=== PATIENT | female | born 1940 | race Caucasian/White ===

== ENCOUNTER 2016-08-31 12:08 | Inpatient (IN) ==
[2016-08-31] MEDS ORDERED: NS 1,000 ML IV ONE (12:32)
--- NOTE | 2016-08-31 12:40 | PROVIDER DOCUMENTATION ---
HPI-Abdominal Pain/GI Problem - General Chief Complaint: Weakness Stated Complaint: weakness/vomiting/shaking Time Seen by Provider: 08/31/16 12:09 Source: patient Allergies/Adverse Reactions: Patient Allergies Allergy/AdvReac Type Severity Reaction Status Date / Time No Known Allergies Allergy Verified 08/22/16 20:00 Home Medications: Home Medication List Medication Instructions Recorded Confirmed Last Taken Type Biotin 5,000 mcg PO DAILY 08/22/16 08/31/16 08/22/16 History Carbidopa/Levodopa [Carbidopa-Levo 1 each PO HS 08/22/16 08/31/16 08/30/16 19: 00 History 25-250 Tab] Carbidopa/Levodopa [Sinemet 25/100] 1 each PO TID 08/22/16 08/31/16 08/30/16 19: 00 History Diazepam 5 mg PO Q8H PRN PRN 08/22/16 08/31/16 08/22/16 History Magnesium 400 mg PO QPM 08/22/16 08/31/16 08/30/16 19:00 History Ondansetron HCl [Zofran] 4 mg PO Q6H PRN PRN 08/22/16 08/31/16 08/22/16 History Ondansetron [Zofran Odt] 4 mg PO Q6-8H PRN PRN #20 08/22/16 08/31/16 Unknown Rx tab.rapdis Potassium Chloride [Klor-Con 10] 10 meq PO QPM 08/22/16 08/31/16 08/21/16 History Rivaroxaban [Xarelto] 20 mg PO DAILY 08/22/16 08/31/16 08/30/16 19:00 History Zolpidem [Ambien] 5 mg PO QHS 08/22/16 08/31/16 08/22/16 History - History of Present Illness-ABD Nature of Presenting Problems: 75 yo WF has poor PO intake, low urine output, constipation, weakness, N/V for a week. No fever, dysuria, CP, SOB. Abdominal Pain Onset Location: reports: generalized abdomen Pain Radiation: reports: no radiation Quality of Pain: reports: aching Severity in ED: reports: mild Onset/Duration: reports: 6 days ago Timing: reports: still present Activities at Onset: reports: none Exposure to sick contacts?: No Modifying Factors: worse with: eating, urinating, vomiting Associated Symptoms: reports: constipation, genitourinary problems, loss of appetite, nausea, vomiting. denies: diaphoresis, diarrhea, fatigue, fever/ chills Last BM: 1 week ago Dark Stools Present?: reports: none noticed Rectal Bleeding: reports: none Rectal Pain: reports: none Review of Systems - Adult - REVIEW OF SYSTEMS - ADULT Constitutional: reports: no symptoms reported. denies: chills, fever Eyes: reports: no symptoms reported Ears, Nose, Mouth & Throat: reports: no symptoms reported Cardiovascular: reports: no symptoms reported. denies: palpitations Respiratory: reports: no symptoms reported. denies: cough, shortness of breath Gastrointestinal: reports: no symptoms reported Genitourinary: reports: no symptoms reported, hesitency. denies: dysuria Musculoskeletal: reports: no symptoms reported Integumentary: reports: no symptoms reported Neurological: reports: tremors (old) Psychiatric: reports: no symptoms reported Endocrine: reports: no symptoms reported Hematologic/Lymphatic: reports: no symptoms reported Allergic/Immunologic: reports: no symptoms reported All Other Systems: Reviewed and Negative Past History - Adult - PAST MEDICAL HISTORY-ADULT Review of Records: reports: Old Records Reviewed, Nursing Assessment Review, Medications Reviewed, Social history reviewed & non-contributory. Major Childhood Illnesses: reports: denies history Cardiovascular: reports: denies history, other ("calcified something in my chest ") Respiratory: reports: denies history Gastrointestinal: reports: Crohn's, inflammatory bowel disease Obstetrical/Gynecological: reports: denies history Genitourinary: reports: denies history Musculoskeletal: reports: arthritis, osteoporosis, other (ankylosing spondylosis ) Neurological: reports: denies history, other (tremor) Psychiatric: reports: denies history Endocrine/Immune: reports: denies history Other Conditions: reports: denies history - PRIOR HOSPITALIZATIONS Prior Hospitalizations: reports: for other non-related - IMMUNIZATION STATUS Flu Vaccine: UTD - FAMILY HISTORY Family History: reviewed, not pertinent Physical Exam-General - PHYSICAL EXAM-ADULT Initial Vital Signs Reviewed: Yes - CONSTITUTIONAL General Appearance: mild distress, obese - EYES Eyes: PERRL/EOMI, pink conjunctivae - HEAD, EARS, NOSE, MOUTH & THROAT HENMT: normocephalic/atraumatic, moist mucous membranes - NECK Neck: non-tender, supple - RESPIRATORY Respiratory: lungs clear, normal breath sounds - CARDIOVASCULAR Cardiovascular: normal peripheral pulses, regular rate, rhythm, no edema, tachycardia - GASTROINTESTINAL (ABDOMEN) Abdominal Exam: non tender, soft - LYMPHATIC Lymphatic: no adenopathy - MUSCULOSKELETAL Back Exam: no CVA tenderness, no vertebral tenderness - SKIN Integumentary: normal color - NEUROLOGIC Neurologic: no motor/sensory deficits, other (tremulous (old)) - PSYCHIATRIC Psych/Mental Status: normal mood/affect, normal thought content, normal thought process, oriented x 3 Progress - PLAN OF CARE/RESULTS Progress/Plan/Lab Results: Vital Signs - 8 hr 08/31/16 12:09 Temperature 97.7 F Pulse Rate 197 H Respiratory Rate 16 Blood Pressure 126/54 O2 Sat by Pulse Oximetry 99 Orders Category Date Time Status FLAT/UPRIGHT ABD/1 VIEW CHEST [RAD] Stat Exams 08/31/16 12:32 Ordered CBC WITH ELECTRONIC DIFF [HEME] Stat Lab 08/31/16 12:32 Uncollected COMPREHENSIVE METABOLIC PANEL [CHEM] Stat Lab 08/31/16 12:32 Uncollected URINALYSIS W/POSS RFLX CULT [URINALYSIS] Stat Lab 08/31/16 12:32 Uncollected 0.9% Sodium Chloride Inj [Ns] 1,000 ml Med 08/31/16 12:32 Active IV 999 mls/hr 1700 Discussed results with patient. Her IV infiltrated again. Family states she cannot perform ADLS. Needs help. Wants admission for rehab. Noted abnormal heart monitor intermittently with tachycardia. Result Diagrams: 08/31/16 13:34 08/31/16 13:34 - CONSULTS/PCP/HOSPITALIST Notification #1 *Consult/PCP/Hospitalist*: Hospitalist Time Discussed: 17:25 Reason/Comments: Janeen Consult Disposition: Admit Departure - Departure Date of Disposition Decision: 08/31/16 Time of Disposition Decision: 17:26 DIAGNOSIS: Leukocytosis, Constipation Disposition: ADMITTED INPATIENT 09 Certified Medical Emergency: Emergent Condition: Stable Referrals and Follow-Ups: Isrrael Reyes MD [Primary Care Provider] - - Critical Care Note This patient required my direct & personal management of CC.: No
--- NOTE | 2016-08-31 12:43 | EKG Report ---
Test Performed on : 08/31/2016 12:09:35 PM Test Reason : CP Blood Pressure : / mmHG Vent. Rate : 092 BPM Atrial Rate : 092 BPM P-R Int : 158 ms QRS Dur : 078 ms QT Int : 372 ms P-R-T Axes : 050 011 016 degrees QTc Int : 460 ms Normal sinus rhythm. Low voltage QRS ST \T\ T wave abnormality, consider anterior ischemia Abnormal ECG When compared with ECG of 22-AUG-2016 19:24, No significant change was found Unconfirmed Result
--- NOTE | 2016-08-31 13:21 | Diag Imaging Result Doc PS360 ---
FLAT/UPRIGHT ABD/1 VIEW CHEST - 08/31/2016 INDICATION: constipation, pain TECHNIQUE: Three views COMPARISON: 10/12/2014 FINDINGS: The lungs are clear and the heart size is normal. There are numerous stable left-sided rib deformities. There are cholecystectomy clips. No definite bowel obstruction or free air. IMPRESSION: Negative exam. Electronically signed by Rodolfo Bran 08/31/2016 1:19 PM
[2016-08-31 14:05] LABS: BASO% 0.1 % (0.0-0.8); EOS# 0.04 X1000 (0.0-0.7); EOS% 0.3 % (0.0-10.0); HEMATOCRIT 36.6 % (37.0-47.0); HEMOGLOBIN 12.7 g/dL (12.0-16.0); LYMPH# 2.77 X1000 (1.2-3.4); LYMPH% 23.6 % (20.5-51.1); MANUAL DIFF NEEDED? NO; MCH 37.1 PG (27-31); MCHC 34.7 g/dL (33-37); MONO# 0.83 X1000 (0.11-0.59); MONO% 7.1 % (1.7-9.3); MPV 9.7 FL (7.4-10.4); NEUT% 68.9 % (42.2-75.2); PLT 408 X1000 (130-400); RBC 3.42 XMIL (4.2-5.4)
[2016-08-31 14:07] LABS: ALBUMIN 2.7 g/dL (3.5-5.0); CALCIUM 8.5 mg/dL (8.8-10.2); TOTAL BILIRUBIN 0.51 mg/dL (0.20-1.00); TOTAL PROTEIN 5.8 g/dL (6.3-8.3)
[2016-08-31 14:54] LABS: URINE MICRO REVIEW NEEDED? NO; URINE SOURCE CATH
[2016-08-31 15:03] LABS: BILIRUBIN URINE NEGATIVE (NEGATIVE); BLOOD URINE NEGATIVE (NEGATIVE); COLOR YELLOW; GLUCOSE URINE NEGATIVE (NEGATIVE); LEUKOCYTES URINE TRACE (NEGATIVE); NITRITE URINE NEGATIVE (NEGATIVE); PH URINE 6.5; PROTEIN URINE TRACE mg/dL (NEGATIVE); SP GRAVITY URINE 1.022; TURBIDITY URINE CLEAR (CLEAR); UROBILINOGEN URINE NORMAL (NORMAL)
[2016-08-31 15:05] LABS: UR EPITHELIAL CELLS <10 /HPF (<10); URINE BACTERIA NEGATIVE /HPF; URINE CULTURE NEEDED? YES; URINE RBC <10 /HPF (<10); URINE WBC <10 /HPF (<10)
[2016-08-31 15:27] LABS: POTASSIUM 3.8 mmol/L (3.5-5.1)
[2016-08-31] MEDS ORDERED: ZOFRAN ODT PO ONE (15:48)
[2016-08-31] MEDS ORDERED: MORPHINE IV ONE (16:50)
[2016-08-31] MEDS ORDERED: ZOFRAN ONE (16:52)
[2016-08-31] MEDS ORDERED: MORPHINE ONE (16:52)
[2016-08-31] MEDS ORDERED: ZOFRAN IV ONE (17:07)
[2016-08-31] MEDS ORDERED: ZOFRAN IV PRN (18:49)
--- NOTE | 2016-08-31 20:37 | HISTORY AND PHYSICAL ---
CHIEF COMPLAINT: Nausea, constipation. HISTORY OF PRESENT ILLNESS: This is a 75-year-old female with a past medical history of Crohn disease, ankylosis spondylitis, uncontrolled hypertension, pulmonary embolism back in January 2016 on anticoagulation, possible Parkinson disease, came to the emergency department with a chief complaint of 2 weeks with constipation. As per the patient also she started having nausea since yesterday. Her last bowel movement was last Saturday and since then she has been feeling worse, family members at the bedside. Laboratory work done at the emergency department showed WBC 11.7. X-ray of the abdomen showed cholecystectomy clips but no bowel obstruction or free air. Also this patient has generalized weakness to the point that she cannot walk by herself. She needs to get help. As per the patient also she was able to walk a month ago. This patient will be admitted to treat her constipation and nausea and I will talk to the social media specialist to see if we can find some placement for this patient since this patient is living by herself and probably she cannot take care of her. REVIEW OF SYSTEMS: All negative except as per HPI. PAST MEDICAL HISTORY: Crohn disease, ankylosis spondylitis, uncontrolled hypertension, pulmonary embolism on anticoagulation, possible Parkinson disease. PAST SURGICAL HISTORY: Bowel resection 5 years ago, history of hernia repair, lower spinal surgery back in 1964 and nerve repair at the right leg back in 1958. SOCIAL HISTORY: She lives by herself. She does not smoke, drink alcohol or drugs. FAMILY HISTORY: Noncontributory. ALLERGIES: No known allergies to medications. BLOOD TRANSFUSION: None. PHYSICAL EXAM: VITAL SIGNS: Temperature 97.7 degrees, pulse 122, respiratory rate 14, blood pressure 125/61, O2 saturation 100% on 2 L of nasal cannula. HEENT: Head normocephalic. No trauma. PERRLA. NECK: Supple. No JVD. No masses. Central trachea. CHEST: Clear to auscultation. No wheezing. No rales. CARDIOVASCULAR: RRR, tachycardic. ABDOMEN: Soft, nontender, nondistended. No hepatosplenomegaly. EXTREMITIES: No edema. No clubbing. No cyanosis. NEUROLOGICAL: This patient is alert and oriented x3. She has generalized tremors mostly at the level of the upper and lower extremities. INGUINAL AREA: She has bilateral rash. LABORATORY: WBC 11.7, hemoglobin 12.7, hematocrit 36.6, platelets 408,000. Sodium 134, potassium 3.8, chloride 95, bicarbonate 27, BUN 22, creatinine 1, glucose 98, calcium 8.5, AST 19, ALT 12, alkaline phosphatase 186. Troponins negative. Urinalysis negative for infection. ASSESSMENT AND PLAN: 1. Severe constipation. I will hydrate this patient and also I will put this patient on MiraLAX twice a day and I will place a Dulcolax suppository x1, will monitor. Also I will ask for physical therapy. 2. Nausea. I will put this patient on Zofran p.r.n. 3. History of Crohn disease. Aware. 4. History of ankylosis spondylitis. Aware. 5. Uncontrolled hypertension. The blood pressure right now is stable. Continue to monitor. 6. Pulmonary embolism back in January 2016. I will continue with Xarelto. 7. Possible Parkinson disease. Continue with her home medication. 8. Physical deconditioning. Physical therapy will be on board. MEDICATIONS: Magnesium 400 mg p.o. daily, biotin 5000 mcg p.o. daily, zolpidem 5 mg p.o. twice a day, carbidopa/levodopa 25/250 one tablet p.o. at bedtime, Zofran 4 mg p.o. q.6 hours p.r.n., Xarelto 20 mg p.o. daily, potassium chloride 10 mEq p.o. daily, diazepam 5 mg p.o. every 8-12 hours p.r.n., [place] 5 mg p.o. q.8 hours p.r.n. pain. cc: Sae Guillen MD
[2016-08-31] MEDS: NS 1,000 ML IV SCH (20:43)
[2016-08-31] MEDS ORDERED: VALIUM PO PRN (22:31)
[2016-08-31] MEDS ORDERED: DULCOLAX PR ONE (22:31)
[2016-09-01] MEDS: SINEMET 25/250 PO SCH ×2 (00:18→21:36)
[2016-09-01] MEDS: TYLENOL PO PRN ×2 (00:18→16:41)
[2016-09-01] MEDS: AMBIEN PO SCH ×2 (00:19→21:36)
[2016-09-01] MEDS: MIRALAX PO SCH ×3 (00:19→21:36)
[2016-09-01] MEDS: MAG-OX PO SCH ×2 (00:19→21:36)
[2016-09-01 06:58] LABS: BASO% 0.4 % (0.0-0.8); EOS% 4.1 % (0.0-10.0); HEMOGLOBIN 9.9 g/dL (12.0-16.0); LYMPH# 2.58 X1000 (1.2-3.4); LYMPH% 52.8 % (20.5-51.1); MANUAL DIFF NEEDED? YES; MCH 36.3 PG (27-31); MCHC 34.1 g/dL (33-37); MCV 106.2 FL (81-99); MONO# 0.46 X1000 (0.11-0.59); MONO% 9.4 % (1.7-9.3); MPV 9.5 FL (7.4-10.4); NEUT% 31.3 % (42.2-75.2); PLT 290 X1000 (130-400); RBC 2.73 XMIL (4.2-5.4)
[2016-09-01 07:08] LABS: AGAP 8; ALBUMIN 2.1 g/dL (3.5-5.0); ALKALINE PHOSPHATASE 142 U/L (32-104); BUN 23 mg/dL (8-22); CALCIUM 7.5 mg/dL (8.8-10.2); CHLORIDE 99 mmol/L (98-107); COSMO 272; GOT 24 U/L (10-30); GPT 6 U/L (10-36); POTASSIUM 3.3 mmol/L (3.5-5.1); SODIUM 135 mmol/L (136-145); TCO2 28 mmol/L (25-35); TOTAL BILIRUBIN 0.33 mg/dL (0.20-1.00); TOTAL PROTEIN 4.3 g/dL (6.3-8.3)
[2016-09-01 07:51] LABS: EOS 4 % (1-10); LYMPHS 48 % (21-51); MONO 4 % (1-9)
[2016-09-01] MEDS ORDERED: KLOR-CON PO ONE (08:21)
[2016-09-01] MEDS ORDERED: BIOTIN PO SCH (09:00)
[2016-09-01] MEDS: XARELTO PO SCH (09:42)
[2016-09-01] MEDS: EUCERIN CREAM TOP SCH ×3 (12:06→21:35)
--- NOTE | 2016-09-01 12:59 | PROGRESS NOTE ---
DATE: 09/01/2016 SUBJECTIVE: This patient's constipation is getting better. She had at least 3 bowel movements today. The main problem at this moment is a rash at the level of the inguinal area and perianal area. I have ordered a Camp catheter and also I will use Eucerin cream to protect those areas. Her friend is at the bedside. Physical therapy is on board. OBJECTIVE: Vital Signs: Temperature 97.5 degrees, pulse 75, respiratory rate 14, blood pressure 103/48, oxygen saturation 100% on 2L nasal cannula. HEENT: Head normocephalic. No trauma. PERRLA. Neck: Supple. No JVD. No masses. Central trachea. Chest: Clear to auscultation. No wheezing. No rales. Cardiovascular: RRR. No murmurs. Abdomen: Soft, nontender, nondistended. No hepatosplenomegaly. Extremities: No edema. No clubbing. No cyanosis. Inguinal Area: She has bilateral rash including the perianal area. Neurologic: The patient is alert and oriented x3. No focal deficits. She has generalized tremors. LABORATORY: WBC 4.8, hemoglobin 9.9, hematocrit 29, platelets 290,000. Sodium 135, potassium 3.3, chloride 99, bicarbonate 28, BUN 23, creatinine 0.8, calcium 7.5, albumin 2.1. Vitamin B12 45. Folate 14.6. ASSESSMENT AND PLAN: 1. Severe constipation. This is getting better. She had so far 3 bowel movements today. We will continue to monitor. We will continue with the same management. 2. Nausea, resolved. We will continue with Zofran p.r.n. 3. Rash at the level of the inguinal area and perianal area. A Camp catheter has been placed. I will use Eucerin to keep this protected. 4. History of Crohn disease. Aware. 5. History of ankylosing spondylitis. Aware. 6. Hypertension, stable. Continue to monitor. 7. Pulmonary embolism back in January 2016. Continue with Xarelto. 8. Possible Parkinson disease. Continue with her home medications. 9. Physical deconditioning. Physical therapy is on board. 10. Macrocytic anemia, likely related to B12 deficiency. Will start B12 on this patient. cc: Sae Guillen MD
[2016-09-01] MEDS: CYANOCOBALAMIN IM SCH (16:25)
[2016-09-01] MEDS: NS 1,000 ML IV SCH ×2 (16:43→16:47)
[2016-09-01 20:35] LABS: URINE MICRO REVIEW NEEDED? NO; URINE SOURCE CATH
[2016-09-01 20:44] LABS: BILIRUBIN URINE NEGATIVE (NEGATIVE); BLOOD URINE LARGE (NEGATIVE); COLOR YELLOW; GLUCOSE URINE NEGATIVE (NEGATIVE); LEUKOCYTES URINE TRACE (NEGATIVE); NITRITE URINE NEGATIVE (NEGATIVE); PROTEIN URINE 30 mg/dL (NEGATIVE); SP GRAVITY URINE 1.033; TURBIDITY URINE CLEAR (CLEAR); UROBILINOGEN URINE NORMAL (NORMAL)
[2016-09-01 20:46] LABS: UR EPITHELIAL CELLS <10 /HPF (<10); URINE BACTERIA NEGATIVE /HPF; URINE CULTURE NEEDED? YES; URINE RBC TNTC /HPF (<10)
[2016-09-01] MEDS: KLOR-CON PO SCH (21:36)
[2016-09-02 06:58] LABS: MANUAL DIFF NEEDED? NO
[2016-09-02 07:34] LABS: EOS# 0.17 X1000 (0.0-0.7); EOS% 2.3 % (0.0-10.0); HEMATOCRIT 34.2 % (37.0-47.0); HEMOGLOBIN 11.8 g/dL (12.0-16.0); IMM GRAN% 2.7 % (0.0-0.5); LYMPH# 2.82 X1000 (1.2-3.4); LYMPH% 38.6 % (20.5-51.1); MCH 36.6 PG (27-31); MCHC 34.5 g/dL (33-37); MCV 106.2 FL (81-99); MONO# 0.68 X1000 (0.11-0.59); MONO% 9.3 % (1.7-9.3); MPV 9.9 FL (7.4-10.4); NEUT% 46.1 % (42.2-75.2); PLT 286 X1000 (130-400); RBC 3.22 XMIL (4.2-5.4)
[2016-09-02 07:38] LABS: AGAP 10; BUN 19 mg/dL (8-22); CALCIUM 7.6 mg/dL (8.8-10.2); CHLORIDE 98 mmol/L (98-107); COSMO 265; POTASSIUM 4.1 mmol/L (3.5-5.1); SODIUM 132 mmol/L (136-145); TCO2 24 mmol/L (25-35)
[2016-09-02] MEDS: MIRALAX PO SCH (08:57)
[2016-09-02] MEDS: BIOTIN PO SCH (08:57)
[2016-09-02] MEDS: CYANOCOBALAMIN IM SCH (08:58)
[2016-09-02] MEDS: EUCERIN CREAM TOP SCH ×2 (08:58→20:42)
[2016-09-02] MEDS: XARELTO PO SCH (08:58)
--- NOTE | 2016-09-02 18:08 | PROGRESS NOTE ---
DATE: 09/02/2016 SUBJECTIVE: This patient's constipation is much better. She states that she feels 100% better. She is still having generalized weakness. Physical therapy is on board. OBJECTIVE: Vital Signs: Temperature 97.8 degrees, pulse 80, respiratory rate 20, blood pressure 120/83. O2 saturation 100% on 2 L of nasal cannula. HEENT: Head is normocephalic. No trauma. PERRLA. Neck: Supple. No JVD. No masses. Central trachea. Chest: Clear to auscultation. No wheezing. No rales. Abdomen: Soft, nontender, nondistended. No hepatosplenomegaly. Extremities: No edema. No clubbing. No cyanosis. The inguinal area, she has bilateral rash, including the perianal area. Neurological Examination: The patient is alert and oriented x3. No focal deficits. Generalized tremors and weakness. LABORATORY: WBC 7.3, hemoglobin 11.8, hematocrit 34.2, platelets 286,000. Sodium 132, potassium 4.1, chloride 98, bicarbonate 24, BUN 19, creatinine 0.7, glucose 75, calcium 7.6. Urine culture gram-negative rods. ASSESSMENT AND PLAN: 1. Severe constipation. This is getting better. She has been having multiple bowel movements per day. I decreased the dose of MiraLAX to one a day. Will continue to monitor. 2. Nausea, resolved. 3. Rash at the level of the inguinal area and perianal area. Continue to have these areas dry, clean, and antifungal cream. 4. History of Crohn's disease, aware. 5. History of ankylosing spondylitis, aware. 6. Hypertension, stable. Continue to monitor. 7. Pulmonary embolism back in January,. Continue with Xarelto. 8. Possible Parkinson disease. Continue with home medication. 9. Physical deconditioning. Physical therapy is on board. 10. Microcytic anemia, secondary to B12 deficiency. Continue with B12 treatment. Positive culture for gram-negative mary lou in the urine. When this patient was admitted, we did a urinalysis that was clean. Also the urine culture from admission is negative. Then, this patient started having multiple bowel movements and we placed a Camp catheter. After that the urine looks infected and we have a positive culture that showed gram-negative rods. This patient is not complaining of burning sensation or any symptoms with the urine. I will repeat the urinalysis and cultures. She is not getting antibiotics. cc: Sae Guillen MD
[2016-09-02] MEDS: TYLENOL PO PRN (19:41)
[2016-09-02] MEDS: AMBIEN PO SCH (20:41)
[2016-09-02] MEDS: SINEMET 25/250 PO SCH (20:41)
[2016-09-02] MEDS: KLOR-CON PO SCH (20:41)
[2016-09-02] MEDS: MAG-OX PO SCH (20:41)
[2016-09-02] MEDS: NS 1,000 ML IV SCH (20:49)
[2016-09-03] MEDS: NS 1,000 ML IV SCH ×3 (00:47→20:32)
--- NOTE | 2016-09-03 03:52 | PROGRESS NOTE ---
DATE: 09/02/2016 ADDENDUM: DISPOSITION: This patient was admitted because of severe constipation and leukocytosis, the constipation improved and the leukocytosis improved without antibiotics. She has a positive urine culture that showed gram-negative rods. Probably this is a contaminant. I have repeated the urinalysis again and urine culture again since the 1st one from the day of admission is negative. The 2nd one was taken after the placement of a Camp catheter. This patient is not having urinary symptoms. cc: Sae Guillen MD
[2016-09-03 07:18] LABS: MANUAL DIFF NEEDED? NO
[2016-09-03 07:42] LABS: BASO% 0.8 % (0.0-0.8); EOS# 0.15 X1000 (0.0-0.7); EOS% 2.3 % (0.0-10.0); HEMATOCRIT 32.4 % (37.0-47.0); HEMOGLOBIN 11.3 g/dL (12.0-16.0); IMM GRAN# 0.18 X1000 (0.0-0.04); IMM GRAN% 2.7 % (0.0-0.5); LYMPH# 2.19 X1000 (1.2-3.4); LYMPH% 33.3 % (20.5-51.1); MCH 36.6 PG (27-31); MCHC 34.9 g/dL (33-37); MCV 104.9 FL (81-99); MONO# 0.83 X1000 (0.11-0.59); MONO% 12.6 % (1.7-9.3); MPV 9.2 FL (7.4-10.4); NEUT% 48.3 % (42.2-75.2); PLT 376 X1000 (130-400); RBC 3.09 XMIL (4.2-5.4)
--- NOTE | 2016-09-03 07:43 | EKG Report ---
Test Performed on : 08/31/2016 6:24:38 PM Test Reason : CP Blood Pressure : / mmHG Vent. Rate : 092 BPM Atrial Rate : 092 BPM P-R Int : 172 ms QRS Dur : 072 ms QT Int : 368 ms P-R-T Axes : 039 008 -17 degrees QTc Int : 455 ms Normal sinus rhythm. Cannot rule out Inferior infarct , age undetermined Abnormal ECG When compared with ECG of 31-AUG-2016 12:09, (Unconfirmed) No significant change was found Unconfirmed Result
[2016-09-03 07:47] LABS: AGAP 7; BUN 14 mg/dL (8-22); CALCIUM 7.6 mg/dL (8.8-10.2); CHLORIDE 98 mmol/L (98-107); COSMO 269; POTASSIUM 3.5 mmol/L (3.5-5.1); SODIUM 135 mmol/L (136-145); TCO2 30 mmol/L (25-35)
[2016-09-03] MEDS: XARELTO PO SCH (09:04)
[2016-09-03] MEDS: MIRALAX PO SCH (09:04)
[2016-09-03] MEDS: BIOTIN PO SCH (09:05)
[2016-09-03] MEDS: CYANOCOBALAMIN IM SCH (09:05)
[2016-09-03] MEDS: EUCERIN CREAM TOP SCH ×2 (09:05→20:37)
[2016-09-03 10:25] LABS: URINE MICRO REVIEW NEEDED? NO; URINE SOURCE CATH
[2016-09-03 10:32] LABS: BILIRUBIN URINE NEGATIVE (NEGATIVE); BLOOD URINE SMALL (NEGATIVE); COLOR YELLOW; GLUCOSE URINE NEGATIVE (NEGATIVE); LEUKOCYTES URINE MODERATE (NEGATIVE); NITRITE URINE POSITIVE (NEGATIVE); PH URINE 5.5; PROTEIN URINE NEGATIVE (NEGATIVE); SP GRAVITY URINE 1.014; TURBIDITY URINE CLEAR (CLEAR); UROBILINOGEN URINE NORMAL (NORMAL)
[2016-09-03 10:34] LABS: UR EPITHELIAL CELLS <10 /HPF (<10); URINE BACTERIA 4+ /HPF; URINE RBC <10 /HPF (<10); URINE WBC TNTC /HPF (<10)
[2016-09-03] MEDS ORDERED: CALCIUM GLUCONATE 1 GM in NS 50 ML IV ONE (13:49)
--- NOTE | 2016-09-03 15:23 | PROGRESS NOTE ---
DATE: 09/03/2016 SUBJECTIVE: The patient has had multiple episodes of diarrhea. She denies having any abdominal pain and has been eating all of her meal. OBJECTIVE: Vital signs: Temperature 97 degrees, blood pressure 126/51, heart rate 76, respirations 16, O2 saturations 100% on 2 L nasal cannula. General: This is a morbidly obese, elderly female, lying in bed, in no acute distress. Head: Normocephalic, atraumatic. Heart: S1, S2. Normal. Regular rate and rhythm. Lungs: Clear to auscultation bilaterally. Abdomen: Positive bowel sounds. Soft, nontender, nondistended. Extremities: No edema. No cyanosis. No calf tenderness. Neurologic: The patient is alert and oriented x3. LABORATORY: Sodium 135, potassium 3.5, chloride 98, CO2 30, BUN 14, creatinine 0.7, glucose 79. White blood cell count 6.5, hemoglobin 11, hematocrit 32, platelets 376,000. Urinalysis is 4+ bacteria. Moderate leukocytes and positive nitrites. ASSESSMENT AND PLAN: 1. Urinary tract infection. The prior urine culture grew out Escherichia coli. We will start the patient on Rocephin. 2. Diarrhea. We will check stool for Clostridium difficile and other stool studies. We will start the patient on lactobacillus. 3. History of pulmonary embolism. Continue on Xarelto. 4. Morbid obesity. Aware. 5. Parkinson's disease. Continue on Sinemet. 6. Hypocalcemia. We will give the patient a dose of calcium gluconate. 7. Continue with physical therapy. 8. Disposition. Once the patient is medically stable, she will be discharged to rehab. cc: Helen Nina MD
[2016-09-03] MEDS: ROCEPHIN 1 GM/NS 1 GM/50 ML IVPB IV SCH (17:36)
[2016-09-03] MEDS: KLOR-CON PO SCH (20:36)
[2016-09-03] MEDS: SINEMET 25/250 PO SCH (20:36)
[2016-09-03] MEDS: MAG-OX PO SCH (20:36)
[2016-09-03] MEDS: CULTURELLE PO SCH (20:36)
[2016-09-03] MEDS: AMBIEN PO SCH (21:11)
[2016-09-04] MEDS: NS 1,000 ML IV SCH (04:49)
[2016-09-04 10:26] LABS: BASO% 2.6 % (0.0-0.8); EOS# 0.12 X1000 (0.0-0.7); EOS% 1.6 % (0.0-10.0); HEMATOCRIT 33.9 % (37.0-47.0); HEMOGLOBIN 11.7 g/dL (12.0-16.0); IMM GRAN# 0.22 X1000 (0.0-0.04); IMM GRAN% 2.9 % (0.0-0.5); LYMPH# 2.66 X1000 (1.2-3.4); LYMPH% 35.1 % (20.5-51.1); MANUAL DIFF NEEDED? YES; MCH 36.8 PG (27-31); MCHC 34.5 g/dL (33-37); MCV 106.6 FL (81-99); MONO# 0.89 X1000 (0.11-0.59); MONO% 11.8 % (1.7-9.3); MPV 9.3 FL (7.4-10.4); PLT 332 X1000 (130-400); RBC 3.18 XMIL (4.2-5.4)
[2016-09-04] MEDS: XARELTO PO SCH (10:40)
[2016-09-04] MEDS: CULTURELLE PO SCH ×2 (10:40→21:16)
[2016-09-04] MEDS: EUCERIN CREAM TOP SCH ×2 (10:41→21:24)
[2016-09-04] MEDS: CYANOCOBALAMIN IM SCH (10:41)
[2016-09-04] MEDS: BIOTIN PO SCH (10:42)
[2016-09-04 10:49] LABS: AGAP 13; ALBUMIN 2.4 g/dL (3.5-5.0); ALKALINE PHOSPHATASE 159 U/L (32-104); BUN 13 mg/dL (8-22); CALCIUM 7.7 mg/dL (8.8-10.2); CHLORIDE 98 mmol/L (98-107); COSMO 271; GOT 16 U/L (10-30); GPT 9 U/L (10-36); POTASSIUM 4.3 mmol/L (3.5-5.1); SODIUM 135 mmol/L (136-145); TCO2 24 mmol/L (25-35); TOTAL BILIRUBIN 0.32 mg/dL (0.20-1.00); TOTAL PROTEIN 4.8 g/dL (6.3-8.3)
[2016-09-04 11:05] LABS: LYMPHS 31 % (21-51); MONO 2 % (1-9)
[2016-09-04 11:07] LABS: MAGNESIUM 1.6 mg/dL (1.5-2.7)
[2016-09-04] MEDS ORDERED: MAGNESIUM SULFATE 2 GM/S.W.I. 2 GM/50 ML IVPB IV ONE (12:36)
[2016-09-04] MEDS ORDERED: IMODIUM PO ONE (12:37)
[2016-09-04] MEDS: ROCEPHIN 1 GM/NS 1 GM/50 ML IVPB IV SCH (14:09)
[2016-09-04] MEDS ORDERED: ULTRAM PO PRN (14:43)
[2016-09-04] MEDS: SINEMET 25/250 PO SCH (21:15)
[2016-09-04] MEDS: QUESTRAN LIGHT PO SCH (21:15)
[2016-09-04] MEDS: AMBIEN PO SCH (21:16)
[2016-09-04] MEDS: KLOR-CON PO SCH (21:16)
[2016-09-04] MEDS: MAG-OX PO SCH (21:16)
--- NOTE | 2016-09-05 03:40 | PROGRESS NOTE ---
DATE: 09/03/2016 SUBJECTIVE: The patient is resting comfortably in bed. She complains of some aches and pains in her joints but, otherwise, feels okay. The patient is still having loose stools. Stool for Clostridium difficile was noted to be negative. OBJECTIVE: Vital Signs: Temperature 98 degrees, blood pressure 125/73, heart rate 114, respirations 18, O2 saturations 95% on room air. General: This is an elderly female, lying in bed, in no acute distress. Head normocephalic, atraumatic. Heart: S1, S2. Normal. Regular rate and rhythm. Lungs: Clear to auscultation bilaterally. No wheezing. No rales. No rhonchi. Abdomen: Positive bowel sounds. Soft, nontender, nondistended. Extremities: Trace pedal edema. Neurologic: The patient is alert and oriented x3. LABORATORY DATA: White blood cell count 7.5, hemoglobin 11, hematocrit 33, platelets 232,000. Sodium 135, potassium 4.3, chloride 98, CO2 of 24, BUN 13, creatinine 0.6, glucose 104. Albumin 2.4. ASSESSMENT AND PLAN: 1. Diarrhea. We will give the patient a dose of Imodium and start Questran twice a day. Stool for Clostridium difficile was noted to be negative and the other stool studies are unremarkable. Continue with lactobacillus. 2. Urinary tract infection secondary to Escherichia coli. Continue on Rocephin. 3. Parkinson's disease. Continue on Sinemet. 4. Morbid obesity, aware. 5. History of pulmonary embolism. Continue on Xarelto. Continue with physical therapy. DISPOSITION: The patient will be discharged to rehab once her diarrhea has subsided. cc: Helen Nina MD
[2016-09-05 07:26] LABS: BASO% 2.2 % (0.0-0.8); EOS# 0.27 X1000 (0.0-0.7); EOS% 3.9 % (0.0-10.0); HEMATOCRIT 31.5 % (37.0-47.0); IMM GRAN# 0.28 X1000 (0.0-0.04); IMM GRAN% 4.1 % (0.0-0.5); LYMPH# 3.49 X1000 (1.2-3.4); LYMPH% 50.9 % (20.5-51.1); MANUAL DIFF NEEDED? YES; MCH 36.8 PG (27-31); MCHC 34.9 g/dL (33-37); MCV 105.4 FL (81-99); MONO# 0.78 X1000 (0.11-0.59); MONO% 11.4 % (1.7-9.3); MPV 9.2 FL (7.4-10.4); NEUT% 27.5 % (42.2-75.2); PLT 363 X1000 (130-400); RBC 2.99 XMIL (4.2-5.4)
[2016-09-05 07:41] VITALS: BP 127/97
[2016-09-05 07:43] LABS: AGAP 11; BUN 13 mg/dL (8-22); CALCIUM 7.9 mg/dL (8.8-10.2); CHLORIDE 99 mmol/L (98-107); COSMO 273; MAGNESIUM 1.6 mg/dL (1.5-2.7); POTASSIUM 3.7 mmol/L (3.5-5.1); SODIUM 137 mmol/L (136-145); TCO2 27 mmol/L (25-35)
[2016-09-05 08:55] LABS: EOS 4 % (1-10); LYMPHS 38 % (21-51); MONO 12 % (1-9)
[2016-09-05] MEDS ORDERED: LEVAQUIN PO SCH (09:00)
[2016-09-05] MEDS: CULTURELLE PO SCH (09:18)
[2016-09-05] MEDS: BIOTIN PO SCH (09:19)
[2016-09-05] MEDS: QUESTRAN LIGHT PO SCH (09:19)
[2016-09-05] MEDS: CYANOCOBALAMIN IM SCH (09:19)
[2016-09-05] MEDS: XARELTO PO SCH (09:19)
[2016-09-05] MEDS: EUCERIN CREAM TOP SCH (09:21)
--- NOTE | 2016-09-05 10:30 | DISCHARGE SUMMARY ---
ADMISSION DATE: 08/31/2016 DISCHARGE DATE: 09/05/2016 PRIMARY CARE PHYSICIAN: Isrrael Reyes MD. FINAL DISCHARGE DIAGNOSES: 1. Urinary tract infection secondary to E. coli. and Proteus 2. Constipation. 3. Parkinson disease. 4. Morbid obesity. 5. History of pulmonary embolism. 6. Osteoarthritis. 7. Crohn disease. 8. Ankylosing spondylitis. HOSPITAL COURSE: Ms. Hall is a 75-year-old female with a history of multiple medical problems, who initially presented to the ER with a chief complaint of nausea, vomiting and constipation. On admission, an abdominal x-ray was done that was noted to be unremarkable. The patient was admitted to the hospitalist service and started on IV fluids plus scheduled laxative therapy. After receiving the laxatives, the patient's constipation improved. She did develop diarrhea so the laxatives were stopped. A urinalysis and urine culture were done that came back positive for a urinary tract infection secondary to E. coli. The patient was treated with IV Rocephin during the hospital stay. With the initiation of antibiotics, her leukocytosis improved. The patient was then switched to Levaquin by mouth. The patient was seen by physical therapy and it was determined that the patient would benefit from a stay at an inpatient rehabilitation center. The patient was ultimately cleared for discharge on 09/05/2016. DISCHARGE MEDICATIONS: 1. Vitamin B12 2500 mcg oral daily. 2. Lactobacillus 1 tab oral twice a day. 3. Levaquin 500 mg p.o. daily x7 days. 4. Ultram 50 mg p.o. every 6 hours p.r.n. for pain. 5. Sinemet 25/100, one tab oral 3 times a day. 6. Xarelto 20 mg p.o. daily. 7. Diazepam 5 mg p.o. every 8 hours p.r.n. for anxiety. 8. Ambien 5 mg p.o. at bedtime. 9. Biotin 5000 mcg oral daily. 10. Klor-Con 10 mEq oral every evening. 11. Zofran 4 mg oral every 6 hours p.r.n. for pain. 12. Carbidopa-levodopa 25/25 mg tablet once at bedtime. DISCHARGE DIET: Low-sodium diet. ACTIVITY: As tolerated. FOLLOWUP INSTRUCTIONS: The patient will need to follow up with Dr. Reyes in 2 weeks. cc: Helen Nina MD [facility]
== END 2016-09-05 12:20 ==
LOC: SUPCPDRO → ED 12:08 → SUATTDRO 20:48 → 3N 20:48
PROVIDERS: ATTEND Internal Medicine

== ENCOUNTER 2016-10-15 08:14 | Inpatient (IN) ==
[2016-10-15] MEDS ORDERED: ZOFRAN IV ONE (09:34)
[2016-10-15] MEDS ORDERED: NS 1,000 ML IV ONE (09:34)
[2016-10-15 09:54] LABS: MANUAL DIFF NEEDED? NO
[2016-10-15] MEDS ORDERED: ADENOCARD IV ONE ×2 (09:54→10:09)
[2016-10-15 09:57] LABS: BASO% 0.6 % (0.0-0.8); EOS# 0.04 X1000 (0.0-0.7); EOS% 0.6 % (0.0-10.0); HEMOGLOBIN 14.8 g/dL (12.0-16.0); IMM GRAN# 0.03 X1000 (0.0-0.04); IMM GRAN% 0.4 % (0.0-0.5); LYMPH# 2.17 X1000 (1.2-3.4); LYMPH% 31.6 % (20.5-51.1); MCHC 34.4 g/dL (33-37); MCV 84.1 FL (81-99); MONO# 0.63 X1000 (0.11-0.59); MONO% 9.2 % (1.7-9.3); MPV 10.2 FL (7.4-10.4); NEUT% 57.6 % (42.2-75.2); PLT 310 X1000 (130-400); RBC 5.11 XMIL (4.2-5.4)
[2016-10-15] MEDS ORDERED: ADENOCARD ONE (09:59)
--- NOTE | 2016-10-15 10:03 | EKG Report ---
Test Performed on : 10/15/2016 09:44:25 AM Test Reason : ABD PAIN Blood Pressure : / mmHG Vent. Rate : 165 BPM Atrial Rate : 165 BPM P-R Int : 000 ms QRS Dur : 064 ms QT Int : 274 ms P-R-T Axes : 000 079 061 degrees QTc Int : 453 ms Supraventricular tachycardia. Low voltage QRS ST \T\ T wave abnormality, consider anterolateral ischemia Abnormal ECG When compared with ECG of 31-AUG-2016 18:24, Vent. rate has increased BY 73 BPM Minimal criteria for Inferior infarct are no longer present Non-specific change in ST segment in Inferior leads Unconfirmed Result
[2016-10-15] MEDS ORDERED: CARDIZEM ONE ×2 (10:07→19:09)
[2016-10-15] MEDS ORDERED: CARDIZEM IV ONE ×3 (10:09→19:49)
[2016-10-15] MEDS ORDERED: CARDIZEM 100 MG/NS 100 MG/100 ML IVPB IV SCH (10:14)
[2016-10-15 10:18] LABS: AGAP 10; ALBUMIN 2.4 g/dL (3.5-5.0); ALKALINE PHOSPHATASE 157 U/L (32-104); AMYLASE 17 U/L (20-200); BUN 14 mg/dL (8-22); CALCIUM 8.2 mg/dL (8.8-10.2); CHLORIDE 95 mmol/L (98-107); COSMO 265; GOT 29 U/L (10-30); GPT 10 U/L (10-36); LIPASE 7 U/L (13-60); POTASSIUM 3.6 mmol/L (3.5-5.1); SODIUM 132 mmol/L (136-145); TCO2 28 mmol/L (25-35); TOTAL PROTEIN 5.1 g/dL (6.3-8.3)
--- NOTE | 2016-10-15 10:35 | EKG Report ---
Test Performed on : 10/15/2016 10:10:25 AM Test Reason : Repeat Blood Pressure : / mmHG Vent. Rate : 106 BPM Atrial Rate : 141 BPM P-R Int : 000 ms QRS Dur : 066 ms QT Int : 316 ms P-R-T Axes : 000 060 052 degrees QTc Int : 419 ms Atrial fibrillation. with rapid ventricular response. with premature ventricular or aberrantly condu cted complexes. Low voltage QRS ST \T\ T wave abnormality, consider anterior ischemia Abnormal ECG When compared with ECG of 15-OCT-2016 09:44, (Unconfirmed) Atrial fibrillation. has replaced Sinus rhythm. Vent. rate has decreased BY 59 BPM Unconfirmed Result
--- NOTE | 2016-10-15 10:56 | Diag Imaging Result Doc PS360 ---
EXAM: CT ABD/PELVIS W/ IV CONT ONLY HISTORY: dry heaving h/o obstruction TECHNIQUE: CT abdomen and pelvis with intravenous contrast. Dose reduction protocol. COMPARISON: 09/21/2016. FINDINGS: There is a small left-sided pleural effusion measuring approximately 3 cm posteriorly and inferiorly in the midline. This is slightly larger than on the prior exam. There is left lower lobe atelectasis. Prominent fatty infiltration of the liver. The gallbladder has been removed. Normal spleen, pancreas, and adrenal glands. There are several tiny renal cysts. No solid renal mass. No hydronephrosis. Normal aorta. No bowel obstruction. There are scattered diverticula primarily in the sigmoid colon. No adjacent inflammation. The colon is collapsed. Small bowel loops are not dilated. I believe the appendix has been removed. No abscess. Small calcified uterine fibroid. Uterus is not enlarged. Neither ovary is enlarged. The urinary bladder is only mildly distended. Ankylosis and degenerative changes in the lumbar spine and sacroiliac joints have an appearance similar to the prior study. IMPRESSION: 1.Small left pleural effusion which has slightly increased in size 2.Cholecystectomy 3.Severe fatty infiltration of the liver 4.No bowel obstruction. 5.Diverticulosis 6.Small uterine fibroid Electronically signed by Kodi Hamilton 10/15/2016 10:54 AM
--- NOTE | 2016-10-15 11:02 | Diag Imaging Result Doc PS360 ---
EXAM: CHEST-2 VIEWS HISTORY: dry heaving nausea pain TECHNIQUE: COMPARISON: 08/31/2016 FINDINGS: The patient is rotated to the left. The lungs are hyper expanded. The heart is not enlarged. The vessels are not distended. There are increased markings in the left base. Questionable tiny effusion. There are several old left rib fractures. IMPRESSION: Left basilar atelectasis versus a tiny infiltrate and likely with a tiny effusion. I believe the patient also has emphysema. Electronically signed by Kodi Hamilton 10/15/2016 11:00 AM
[2016-10-15] MEDS ORDERED: ROCEPHIN 1 GM/NS 1 GM/50 ML IVPB IV ONE (11:29)
[2016-10-15] MEDS ORDERED: ZITHROMAX 500 MG/NS 500 MG/250 ML IVPB IV ONE (11:29)
--- NOTE | 2016-10-15 11:33 | EKG Report ---
Test Performed on : 10/15/2016 11:17:16 AM Test Reason : rythym change Blood Pressure : / mmHG Vent. Rate : 082 BPM Atrial Rate : 082 BPM P-R Int : 156 ms QRS Dur : 066 ms QT Int : 392 ms P-R-T Axes : 027 -09 093 degrees QTc Int : 457 ms Sinus rhythm. with premature atrial complexes. Low voltage QRS Inferior infarct , age undetermined Cannot rule out Anterior infarct , age undetermined Abnormal ECG When compared with ECG of 15-OCT-2016 10:10, Sinus rhythm. has replaced Atrial fibrillation. Minimal criteria for Anterior infarct are now present Inferior infarct is now present Unconfirmed Result
--- NOTE | 2016-10-15 12:13 | PROVIDER DOCUMENTATION ---
This chart was entered by Nicky Pruitt Scribe, acting as scribe for Alberto Redd MD. HPI-General Adult - General Chief Complaint: Nausea Stated Complaint: NAUSEA FOR 4 WEEKS Time Seen by Provider: 10/15/16 09:14 Source: patient, other (friend) Allergies/Adverse Reactions: Patient Allergies Allergy/AdvReac Type Severity Reaction Status Date / Time No Known Allergies Allergy Verified 08/22/16 20:00 Home Medications: Home Medication List Medication Instructions Recorded Confirmed Last Taken Type Biotin 5,000 mcg PO DAILY 08/22/16 08/31/16 08/22/16 History Carbidopa/Levodopa [Carbidopa-Levo 1 each PO HS 08/22/16 08/31/16 08/30/16 19: 00 History 25-250 Tab] Carbidopa/Levodopa [Sinemet 25/100] 1 each PO TID 08/22/16 08/31/16 08/30/16 19: 00 History Diazepam 5 mg PO Q8H PRN PRN 08/22/16 08/31/16 08/22/16 History Magnesium 400 mg PO QPM 08/22/16 08/31/16 08/30/16 19:00 History Ondansetron [Zofran Odt] 4 mg PO Q6-8H PRN PRN #20 08/22/16 08/31/16 Unknown Rx tab.rapdis Potassium Chloride [Klor-Con 10] 10 meq PO QPM 08/22/16 08/31/16 08/21/16 History Rivaroxaban [Xarelto] 20 mg PO DAILY 08/22/16 08/31/16 08/30/16 19:00 History Zolpidem [Ambien] 5 mg PO QHS 08/22/16 08/31/16 08/22/16 History Cyanocobalamin (Vitamin B-12) 2,500 mcg PO DAILY #30 tablet 09/05/16 Unknown Rx [Vitamin B12] Lactobacillus Rhamnosus GG 1 each PO BID capsule 09/05/16 Unknown Rx [Culturelle] Levofloxacin [Levaquin] 500 mg PO DAILY #7 tablet 09/05/16 Unknown Rx Tramadol [Ultram] 50 mg PO Q6H PRN PRN #0 tablet 09/05/16 Unknown Rx - History of Present Illness -Gen Adult Nature of Presenting Problems: Pt is 75 y/o F presents to the ED with nausea and vomiting. Pt states she can not keep anything down. Pt states symptoms have been present for 1 month. Pt denies fever. Pt's friend states having a bowel resection and hernia shortly after the resection. Pt denies abdominal pain presently. Pt denies passing gas. Pt states has lost 32 pounds in the last month. Pt states hx of feeding tube. Pt states last BM was this am. Location of Pain/Injury: reports: none Pain Radiation: reports: no radiation Quality of Pain: reports: none Severity: reports: moderate Onset/Duration: reports: other (1 mth) Timing: reports: still present Context/Activities at Onset: reports: light activity Modifying Factors: improves with: nothing Associated Symptoms: reports: diarrhea, nausea, vomiting. denies: anxiety, arm pain, back/neck pain, chest pain, constipation, cough, diaphoresis, dizziness, EENT symptoms, fatigue, fever/chills, genitourinary problems, headaches, heartburn, joint pain, loss of appetite, malaise, muscle aches, sinus congestion /drainage, rash, seizure, shortness of breath, sensory/motor loss, pain with inspiration, swelling/mass in abdomen, syncope, weakness, trouble walking Similar Symptoms Previously?: Yes (present for one month ) Recently seen or treated by another doctor?: Yes (Pt saw PCP 2 wks ago ) Review of Systems - Adult - REVIEW OF SYSTEMS - ADULT Constitutional: reports: weight loss (32 lbs). denies: chills, fever Eyes: denies: blurred vision, double vision, redness Ears, Nose, Mouth & Throat: denies: ear pain, nose pain, throat pain Cardiovascular: denies: chest pain, heart murmur, irregular heart rate Respiratory: denies: cough, shortness of breath, wheezing Gastrointestinal: reports: diarrhea, nausea, vomiting. denies: abdominal pain Genitourinary: denies: dysuria, flank pain, hematuria Musculoskeletal: denies: back pain, joint pain, neck pain Integumentary: denies: hives, itching, rash Neurological: denies: dizziness/vertigo, headache/migraines, numbness, slurred speech, syncope Psychiatric: denies: anxiety, depression, suicidal thoughts Endocrine: reports: no symptoms reported Hematologic/Lymphatic: reports: no symptoms reported Allergic/Immunologic: reports: no symptoms reported All Other Systems: Reviewed and Negative Past History - Adult - PAST MEDICAL HISTORY-ADULT Review of Records: reports: Nursing Assessment Review, Medications Reviewed, Social history reviewed & non-contributory. Major Childhood Illnesses: reports: denies history Cardiovascular: reports: HTN, other ("calcified something in my chest") Respiratory: reports: denies history Gastrointestinal: reports: Crohn's, inflammatory bowel disease Obstetrical/Gynecological: reports: denies history Genitourinary: reports: denies history Musculoskeletal: reports: arthritis, osteoporosis, other (ankylosing spondylosis ) Neurological: reports: denies history, other (tremor) Psychiatric: reports: denies history Endocrine/Immune: reports: denies history Other Conditions: reports: denies history - PRIOR SURGERIES/PROCEDURES Surgical/Procedure History: reports: appendectomy, cholecystectomy, hernia repair, other (bowel resection) - PRIOR HOSPITALIZATIONS Prior Hospitalizations: reports: for other non-related - IMMUNIZATION STATUS Childhood Immunizations: See Nurse Assessment Flu Vaccine: See Nurse Assessment - FAMILY HISTORY Family History: reviewed, not pertinent - SOCIAL HISTORY Smoking: denies Substance Use: denies Living Situation: family Physical Exam-General - PHYSICAL EXAM-ADULT Initial Vital Signs Reviewed: Yes - CONSTITUTIONAL General Appearance: alert, no apparent distress, other (ill in appearance). negative: appears well, lethargic, slow to respond - EYES Eyes: PERRL/EOMI, pink conjunctivae. negative: pale conjunctivae, sunken eyes - HEAD, EARS, NOSE, MOUTH & THROAT HENMT: normocephalic/atraumatic, moist mucous membranes. negative: angioedema, hearing deficit - NECK Neck: normal inspection. negative: lymphadenopathy, tender lateral - RESPIRATORY Respiratory: chest non-tender, lungs clear, normal breath sounds. negative: crackles, wheezing, increased rate - CARDIOVASCULAR Cardiovascular: normal peripheral pulses, tachycardia. negative: systolic murmur - GASTROINTESTINAL (ABDOMEN) Abdominal Exam: normal bowel sounds, soft, tenderness (generalized), other ( well healed midline surgical scars and well healed surgical scar from prior feeding tube.). negative: distended, rebound, hernia - LYMPHATIC Lymphatic: no adenopathy. negative: enlargement, streaking - MUSCULOSKELETAL Back Exam: normal inspection, no CVA tenderness, no vertebral tenderness. negative: ecchymosis, swelling Extremity: normal range of motion, non-tender, normal inspection. negative: deformity, erythema, swelling - SKIN Integumentary: normal color, normal turgor, warm/dry. negative: ecchymosis, erythema, swelling - NEUROLOGIC Neurologic: grossly normal. negative: aphasia, facial droop - PSYCHIATRIC Psych/Mental Status: normal mood/affect, oriented x 3. negative: paranoid, tearful Progress - PLAN OF CARE/RESULTS Progress/Plan/Lab Results: Vital Signs - 8 hr 10/15/16 08:16 Temperature 97.7 F Pulse Rate 90 Respiratory Rate 16 Blood Pressure 108/063 O2 Sat by Pulse Oximetry 96 Laboratory Results - last 24 hr 10/15/16 09:48 WBC 6.86 RBC 5.11 Hgb 14.8 Hct 43.0 MCV 84.1 MCH 29.0 MCHC 34.4 RDW Std Deviation 21.2 H Plt Count 310 MPV 10.2 Immature Gran % (Auto) 0.4 Neut % (Auto) 57.6 Lymph % (Auto) 31.6 [place] % (Auto) 9.2 Eos % (Auto) 0.6 Baso % (Auto) 0.6 Immature Gran # (Auto) 0.03 Neut # (Auto) 3.95 Lymph # (Auto) 2.17 [place] # (Auto) 0.63 H Eos # (Auto) 0.04 Baso # (Auto) 0.04 Orders Category Date Time Status Saline Loc DIRECTED Care 10/15/16 09:33 Active NPO Diet 10/15/16 09:33 Active CHEST-2 VIEWS [RAD] Stat Exams 10/15/16 09:[address] ABD/PELVIS W/ IV CONT ONLY [CT] Stat Exams 10/15/16 09:34 Ordered AMYLASE [CHEM] Stat Lab 10/15/16 09:48 Received CBC WITH ELECTRONIC DIFF [HEME] Stat Lab 10/15/16 09:48 Completed CK PROFILE [SP CHEM] Stat Lab 10/15/16 09:48 Received COMPREHENSIVE METABOLIC PANEL [CHEM] Stat Lab 10/15/16 09:48 Received LIPASE [CHEM] Stat Lab 10/15/16 09:48 Received TROPONIN T Stat Lab 10/15/16 09:[address] W/POSS RFLX CULT [URINALYSIS] Stat Lab 10/15/16 09:33 Uncollected 0.9% Sodium Chloride Inj [Ns] 1,000 ml Med 10/15/16 09:34 Active IV 999 mls/hr Adenosine [Adenocard] Med 10/15/16 09:59 Discontinued 12 mg .ROUTE .STK-MED ONE Adenosine [Adenocard] Med 10/15/16 09:54 Discontinued 6 mg IV NOW ONE Ondansetron [Zofran] Med 10/15/16 09:34 Discontinued 4 mg IV NOW ONE EKG [EKG] Stat Ther 10/15/16 09:34 Draft Result Diagrams: 10/15/16 09:48 10/15/16 09:48 - EKG 1 Time of EKG reading by physician:: 09:44 EKG Read and Signed by:: Lisa Redd EKG Interpretation (*Must complete 3 of following elements*): Abnormal Rate: 165 Rhythm: supraventricular tachycardia Comments: low voltage QRS; ST & T wave abnormality, consider anterolateral ischemia 2 Time of EKG reading by physician:: 10:10 EKG Read and Signed by:: Lisa Redd EKG Interpretation (*Must complete 3 of following elements*): Abnormal (rhythm - atrial fibrillation with rapid ventricular response with premature ventricular or aberrantly conducted complexes) Rate: 106 Comments: low voltage QRS; ST & T wave abnormality, consider anterior ischemia 3 Time of EKG reading by physician:: 11:17 EKG Read and Signed by:: Lisa Redd EKG Interpretation (*Must complete 3 of following elements*): Abnormal (cannot rule out anterior infarct, age undetermined) Rate: 82 Rhythm: sinus rhythm with premature atrial complexes Comments: low voltage QRS; inferior infarct, age undetermined; - XRAY 1 XRAY Study: Chest Impression: Abnormal (left basilar atelectasis versus a tiny infiltrate and likely with a tiny effusion. I believe the patient also has emphysema.) - CT/MRI 1 CT Study: Abdomen, Pelvis Impression: Abnormal (small left pleural effusion which has slightly increased in size. cholecystectomy. severe fatty infiltration of the liver. no bowel obstruction. diverticulosis. small uterine fibroid.) - CONSULTS/PCP/HOSPITALIST Notification #1 *Consult/PCP/Hospitalist*: Dr. Reyes Time Discussed: 11:34 (Dr. Reyes accepted admit ) Reason/Comments: Dr. Redd consulted Dr. Reyes about Pt Consult Disposition: Admit Departure - Departure Date of Disposition Decision: 10/15/16 Time of Disposition Decision: 11:35 DIAGNOSIS: Pleural effusion, Pneumonia Disposition: ADMITTED INPATIENT 09 Certified Medical Emergency: Emergent Condition: Fair Referrals and Follow-Ups: Isrrael Reyes MD [Primary Care Provider] - - Critical Care Note This patient required my direct & personal management of CC.: Yes Total Time (mins): 30 Critical Care Statement: This patient required my direct personal management to treat or rule out processes, the absence of which, could potentiallly result in sudden, clinically significant life or limb threatening deterioration. This chart was documented by the indicated scribe, (Nicky Pruitt Scribe) and accurately reflects the services I performed and decisions made by me, Lisa Redd MD, as attested by the provider's signature.
[2016-10-15] MEDS ORDERED: TYLENOL PO PRN (13:00)
[2016-10-15] MEDS ORDERED: MORPHINE IV PRN (13:00)
[2016-10-15] MEDS ORDERED: NS 250 ML IV ONE (13:54)
[2016-10-15] MEDS: ZOFRAN IV PRN (15:22)
[2016-10-15] MEDS ORDERED: VALIUM PO PRN (18:31)
[2016-10-15] MEDS ORDERED: ZOFRAN ODT PO PRN (18:31)
[2016-10-15] MEDS ORDERED: NORCO-5 PO PRN (18:31)
--- NOTE | 2016-10-15 19:08 | EKG Report ---
Test Performed on : 10/15/2016 7:01:53 PM Test Reason : Rythm Verification Blood Pressure : / mmHG Vent. Rate : 158 BPM Atrial Rate : 156 BPM P-R Int : 000 ms QRS Dur : 076 ms QT Int : 298 ms P-R-T Axes : 000 -16 266 degrees QTc Int : 483 ms Supraventricular tachycardia. Low voltage QRS Cannot rule out Inferior infarct (cited on or before 15-OCT-2016) ST \T\ T wave abnormality, consider anterior ischemia Abnormal ECG When compared with ECG of 15-OCT-2016 11:17, (Unconfirmed) Significant changes have occurred Confirmed by Isrrael Reyes MD ([id number]) on 11/14/2016 7:26:04 PM
[2016-10-15] MEDS: AMBIEN PO SCH (21:50)
[2016-10-15] MEDS: SINEMET 25/250 PO SCH (21:51)
[2016-10-15] MEDS: CARDIZEM 100 MG/NS 100 MG/100 ML IVPB IV SCH (22:55)
[2016-10-16] MEDS ORDERED: CARDIZEM CD PO ONE (05:14)
[2016-10-16 08:24] LABS: BILIRUBIN URINE NEGATIVE (NEGATIVE); BLOOD URINE NEGATIVE (NEGATIVE); CLARITY CLEAR (CLEAR); COLOR YELLOW; GLUCOSE URINE NEGATIVE (NEGATIVE); LEUKOCYTES URINE 1+ (NEGATIVE); NITRITE URINE NEGATIVE (NEGATIVE); PH URINE 6.5; PROTEIN URINE 1+(30 mg/dL) mg/dL (NEGATIVE); UROBILINOGEN URINE NORMAL
[2016-10-16 08:25] LABS: URINE CULTURE PL NEEDED? YES; URINE EPITHELIAL CELLS >10 /HPF (<10); URINE RBC <10 /HPF (<10); URINE WBC <10 /HPF (<10)
[2016-10-16 08:26] LABS: URINE CAST GRANULAR PRESENT /LPF; URINE CRYSTAL NONE SEEN /HPF; URINE SOURCE CLEAN CATCH
--- NOTE | 2016-10-16 09:08 | Diag Imaging Result Doc PS360 ---
GI SERIES WITH BA SWALLOW - 10/16/2016 INDICATION: abd pain and N/V TECHNIQUE: Upper GI exam with air contrast. Total fluoroscopy time was three minutes 24 seconds. 77 images were obtained. COMPARISON: CT from 10/15/2016 FINDINGS: There is a normal swallowing reflex. During the later phases of swallowing, there is generalized hypokinesis of the esophagus and rather significant tertiary wave formation. No mass, stricture, or ulceration. The gastroesophageal junction is normally located. There is extensive gastroesophageal reflux when the patient is recumbent, to the high thoracic esophagus. The stomach is stretched out, with a small peak at the anterior left lateral aspect probably due to an adhesion at the anterior abdominal wall which demonstrates laxity on the CT and is probably pulling on the stomach somewhat. This causes some architectural distortion, however this does not cause any sort of obstruction. No ulceration or mass. The stomach and duodenum are somewhat hypokinetic as well. Intraventricular fairly long time to empty the stomach. IMPRESSION: 1. Moderate presbyesophagus and hypokinesis of the esophagus. 2. Extensive gastroesophageal reflux. 3. Probable gastroparesis, but no obstruction present. Architectural distortion of the stomach as described above. Electronically signed by Rodolfo Bran 10/16/2016 9:06 AM
[2016-10-16] MEDS: KLOR-CON PO SCH (09:36)
[2016-10-16] MEDS: SINEMET 25/100 PO SCH ×3 (09:36→19:28)
[2016-10-16] MEDS: MAG-OX PO SCH (09:37)
[2016-10-16] MEDS ORDERED: VANCOMYCIN IV PER PHARMACY MISC SCH (09:45)
[2016-10-16] MEDS: PATIENT'S OWN MED PO SCH (09:46)
[2016-10-16] MEDS ORDERED: VANCOMYCIN 1,500 MG in NS 250 ML IV ONE (10:00)
[2016-10-16 16:05] LABS: MANUAL DIFF NEEDED? NO
[2016-10-16 16:10] LABS: BASO% 0.5 % (0.0-0.8); EOS# 0.19 X1000 (0.0-0.7); EOS% 2.6 % (0.0-10.0); HEMOGLOBIN 13.6 g/dL (12.0-16.0); IMM GRAN# 0.03 X1000 (0.0-0.04); IMM GRAN% 0.4 % (0.0-0.5); LYMPH# 2.99 X1000 (1.2-3.4); LYMPH% 40.5 % (20.5-51.1); MCH 29.4 PG (27-31); MCHC 34.9 g/dL (33-37); MCV 84.2 FL (81-99); MONO# 0.74 X1000 (0.11-0.59); MPV 10.4 FL (7.4-10.4); PLT 258 X1000 (130-400); RBC 4.63 XMIL (4.2-5.4)
[2016-10-16 16:27] LABS: AGAP 10; ALBUMIN 2.4 g/dL (3.5-5.0); ALKALINE PHOSPHATASE 140 U/L (32-104); BUN 12 mg/dL (8-22); CALCIUM 7.9 mg/dL (8.8-10.2); CHLORIDE 98 mmol/L (98-107); COSMO 268; GOT 21 U/L (10-30); GPT 5 U/L (10-36); POTASSIUM 3.2 mmol/L (3.5-5.1); SODIUM 134 mmol/L (136-145); TCO2 26 mmol/L (25-35); TOTAL PROTEIN 4.7 g/dL (6.3-8.3)
--- NOTE | 2016-10-16 18:30 | CONSULTATION ---
DATE OF CONSULTATION: 10/16/2016 CONSULTATION REQUESTED BY: Isrrael Reyes MD REASON FOR CONSULTATION: Atrial fibrillation. HISTORY: Ms. Hall is a pleasant 75-year-old female who is a regular patient of Dr. Reyes. She presented to the hospital emergency room for admission on 10/15/2016 because for the past few days she has not been able to tolerate food. She has been nauseous, vomiting. She had become progressively weaker. The patient was evaluated in the ER and they recommended admission to the hospital. They did a CT scan of the abdomen and pelvis that showed a small left pleural effusion, severe fatty infiltration of the liver, no bowel obstruction, diverticulosis. The patient has been noted to be tachycardic and then she developed atrial fibrillation with a rapid response. Dr. Reyes has put her on IV Cardizem and she has just converted back to sinus rhythm. He requested evaluation because of the arrhythmia. Chief complaint is irregular heartbeat, nausea and vomiting. PAST MEDICAL HISTORY: Her past history is positive for previous issues with gastroesophageal reflux. She has had well controlled hypertension. She had a pulmonary embolism diagnosed incidentally in February of 2016 when they were doing cardiac testing for other reasons. Back then they did a nuclear perfusion imaging study that suggested a possible inferior scar versus attenuation. A CT angiographic study of the coronary arteries was carried out by Dr. Regalado on 02/16/2016 and that study showed as collateral finding a pulmonary embolism. The coronary arteries showed moderate calcification without any severe stenosis and medical therapy was recommended for that finding, however, the pulmonary embolism has been treated with Xarelto since February of last year. The patient has developed progressive tremor and she has been seen in [place] by a specialist in neurology who has put her on carbidopa/levodopa. Apparently she was not tolerating that medicine very well. She presented for admission to [facility] on 08/31/2016. At that time she had significant constipation. She had been taking pain medicines and the patient was treated symptomatically. She improved and was [facility] she has been admitted at this time to the hospital. Her past history is also positive for ankylosing spondylitis. She has had hypertension. She has had reportedly Crohn's disease. PAST SURGICAL HISTORY: She had ischemic bowel about 8 years ago or so. Subsequently in 2009, Dr. Daniel performed repair of a paraesophageal hernia with a primary repair of esophageal tear in October 2009. At that time the patient was severely malnourished and she had developed anasarca edema from malnutrition. SOCIAL HISTORY: She is living by herself. She has one daughter who lives in [place] and she is present in the room. Her about 20 years ago. She has never been a smoker, not a drinker. FAMILY HISTORY: Family history is negative. ALLERGIES: Negative. HOME MEDICATIONS: 1. Hydrocodone every 8 hours as needed. 2. Biotin 5000 mcg daily. 3. Carbidopa/levodopa. 4. Diazepam 5 mg as needed. 5. Magnesium 400 daily. 6. Potassium chloride 10 mEq daily. 7. Xarelto 20 mg daily. 8. Ambien 5 mg at bedtime. REVIEW OF SYSTEMS: The patient has chronic back pain from her ankylosing spondylitis. She has no active or ongoing cardiac issues. This irregular heartbeat is the first time that it has been identified. She had possibly TIA about 30 years ago involving the language area, so she had transient dysphasia. That has not recurred. PHYSICAL EXAMINATION: Vital signs: On physical exam today, pulse right now is 79. Temperature 97.9. Blood pressure 115/60. Respirations 12. General: She is awake, alert and oriented, in no distress. HEENT: Unremarkable. Chest: Clear to auscultation and percussion. Cardiac: Heart sounds are regular and rhythmic with occasional extrasystole. Abdomen: Nontender, soft. No masses. No hepatomegaly. Extremities: Show good pulses. No edema. Neurologic: She moves four extremities. Follows commands. She does have involuntary tremor, probably parkinsonian, involving the right upper extremity and to some extent the right lower extremity. She does have some trace edema in the left upper extremity that was dangling down on the left side of the bed. She has significant muscle mass atrophy. LABORATORY DATA: Sodium 134, potassium 3.2, BUN 12, creatinine 0.6, alkaline phosphatase 140, bilirubin 0.7, AST 21, ALT 5, albumin 2.4, globulin 2.0. Upper GI series was done today and it shows moderate presbyesophagus, hypokinesis of the esophagus, extensive gastroesophageal reflux, possibly gastroparesis. IMPRESSION: 1. Paroxysmal atrial fibrillation. The patient has converted to sinus rhythm with IV Cardizem prescribed by Dr. Reyes. 2. History of mild coronary atherosclerosis without significant stenosis. This has been stable. 3. History of pulmonary embolism in February of 2016, incidental finding. 4. History of repair of paraesophageal hernia with previous episode of severe anasarca edema from malnutrition. At this time the patient appears to be also malnourished. 5. Parkinson's disease. 6. Ankylosing spondylitis. RECOMMENDATIONS: At this point in time, from a cardiology viewpoint, I would suggest to continue present program with Cardizem at low dose. I would strongly recommend a GI consultation for this patient and also nutritional consultation. Otherwise, no specific additional interventions from Cardiology appear to be required. Please call me if further assistance is needed. cc: MD Isrrael Fleming MD
[2016-10-16] MEDS: XARELTO PO SCH (19:28)
[2016-10-16] MEDS: CARDIZEM 100 MG/NS 100 MG/100 ML IVPB IV SCH (19:49)
[2016-10-16] MEDS: AMBIEN PO SCH (21:24)
[2016-10-16] MEDS: CARDIZEM CD PO SCH (21:25)
[2016-10-16] MEDS: NS 1,000 ML IV SCH (21:30)
[2016-10-17] MEDS: SINEMET 25/250 PO SCH ×2 (02:50→21:38)
[2016-10-17] MEDS: NS 1,000 ML IV SCH ×3 (04:30→21:08)
[2016-10-17] MEDS ORDERED: PROTONIX IV ONE (10:03)
[2016-10-17] MEDS ORDERED: SODIUM CHLORIDE 0.9% INJ ONE (10:03)
[2016-10-17] MEDS: CARDIZEM CD PO SCH (10:30)
[2016-10-17] MEDS: SINEMET 25/100 PO SCH ×3 (10:30→16:34)
[2016-10-17] MEDS: MAG-OX PO SCH (10:30)
[2016-10-17] MEDS: KLOR-CON PO SCH (10:30)
[2016-10-17] MEDS: PATIENT'S OWN MED PO SCH (10:33)
[2016-10-17] MEDS: CARDIZEM 100 MG/NS 100 MG/100 ML IVPB IV SCH (12:34)
[2016-10-17] MEDS ORDERED: KLOR-CON PO ONE (13:48)
[2016-10-17] MEDS: ZOFRAN IV PRN (13:52)
[2016-10-17] MEDS ORDERED: MAGNESIUM SULFATE 2 GM/S.W.I. 2 GM/50 ML IVPB IV ONE (13:59)
[2016-10-17] MEDS: POTASSIUM CHLORIDE 20 MEQ/SWI 20 MEQ/100 ML IVPB IV SCH ×2 (14:12→16:34)
--- NOTE | 2016-10-17 14:13 | EKG Report ---
Test Performed on : 10/17/2016 2:11:27 PM Test Reason : afib Blood Pressure : / mmHG Vent. Rate : 105 BPM Atrial Rate : 105 BPM P-R Int : 176 ms QRS Dur : 092 ms QT Int : 374 ms P-R-T Axes : 033 002 014 degrees QTc Int : 494 ms Sinus tachycardia. with premature atrial complexes. T wave abnormality, consider anterior ischemia Abnormal ECG When compared with ECG of 15-OCT-2016 19:01, (Unconfirmed) premature atrial complexes. are now present Vent. rate has decreased BY 53 BPM Confirmed by Isrrael Reyes MD ([id number]) on 11/14/2016 7:31:33 PM
[2016-10-17] MEDS: LOPRESSOR PO SCH (16:34)
[2016-10-17] MEDS: XARELTO PO SCH (16:34)
[2016-10-17] MEDS: VANCOMYCIN 1,350 MG in NS 250 ML IV SCH (16:44)
[2016-10-17] MEDS: AMBIEN PO SCH (23:05)
[2016-10-18] MEDS: NS 1,000 ML IV SCH ×3 (05:24→18:01)
--- NOTE | 2016-10-18 05:24 | EKG Report ---
Test Performed on : 10/18/2016 05:10:43 AM Test Reason : afib Blood Pressure : / mmHG Vent. Rate : 063 BPM Atrial Rate : 062 BPM P-R Int : 000 ms QRS Dur : 068 ms QT Int : 426 ms P-R-T Axes : 000 -04 004 degrees QTc Int : 435 ms Junctional rhythm. with premature ventricular complexes. or fusion complexes atrial flutter 4;1 arrial flutter Low voltage QRS Possible Inferior infarct , age undetermined Abnormal ECG When compared with ECG of 17-OCT-2016 14:11, (Unconfirmed) Junctional rhythm. has replaced Sinus rhythm. Vent. rate has decreased BY 42 BPM Questionable change in QRS duration Confirmed by Isrrael Reyes MD ([id number]) on 11/14/2016 7:30:17 PM
[2016-10-18 06:36] LABS: MANUAL DIFF NEEDED? NO
[2016-10-18 06:43] LABS: BASO% 0.8 % (0.0-0.8); EOS# 0.26 X1000 (0.0-0.7); EOS% 4.2 % (0.0-10.0); HEMATOCRIT 37.1 % (37.0-47.0); HEMOGLOBIN 12.9 g/dL (12.0-16.0); IMM GRAN# 0.02 X1000 (0.0-0.04); IMM GRAN% 0.3 % (0.0-0.5); LYMPH# 3.04 X1000 (1.2-3.4); LYMPH% 49.4 % (20.5-51.1); MCH 29.3 PG (27-31); MCHC 34.8 g/dL (33-37); MCV 84.3 FL (81-99); MONO# 0.76 X1000 (0.11-0.59); MONO% 12.4 % (1.7-9.3); MPV 10.5 FL (7.4-10.4); NEUT% 32.9 % (42.2-75.2); PLT 270 X1000 (130-400)
[2016-10-18 07:04] LABS: AGAP 8; ALBUMIN 2.2 g/dL (3.5-5.0); ALKALINE PHOSPHATASE 121 U/L (32-104); BUN 8 mg/dL (8-22); CALCIUM 7.8 mg/dL (8.8-10.2); CHLORIDE 107 mmol/L (98-107); COSMO 275; GOT 22 U/L (10-30); GPT 7 U/L (10-36); POTASSIUM 3.5 mmol/L (3.5-5.1); SODIUM 139 mmol/L (136-145); TCO2 25 mmol/L (25-35); TOTAL PROTEIN 4.5 g/dL (6.3-8.3)
[2016-10-18] MEDS: CARDIZEM 100 MG/NS 100 MG/100 ML IVPB IV SCH (08:39)
[2016-10-18] MEDS ORDERED: SODIUM CHLORIDE 0.9% INJ SCH (10:00)
[2016-10-18] MEDS: CARDIZEM CD PO SCH (10:24)
[2016-10-18] MEDS: KLOR-CON PO SCH (10:24)
[2016-10-18] MEDS: LOPRESSOR PO SCH ×2 (10:24→20:31)
[2016-10-18] MEDS: MAG-OX PO SCH (10:25)
[2016-10-18] MEDS: PATIENT'S OWN MED PO SCH (10:25)
[2016-10-18] MEDS: SINEMET 25/100 PO SCH ×2 (10:25→20:32)
[2016-10-18] MEDS: PROTONIX IV SCH (12:02)
[2016-10-18] MEDS: AMBIEN PO SCH (20:31)
[2016-10-18] MEDS: SINEMET 25/250 PO SCH (20:32)
[2016-10-18] MEDS: CARAFATE LIQUID PO SCH (20:32)
[2016-10-18] MEDS ORDERED: VANCOMYCIN 1 GM/NS 1 GM/250 ML IVPB IV ONE (23:00)
[2016-10-18] MEDS: VANCOMYCIN 1,350 MG in NS 250 ML IV SCH (23:17)
[2016-10-19] MEDS: CARAFATE LIQUID PO SCH ×3 (04:17→15:09)
[2016-10-19] MEDS: NS 1,000 ML IV SCH ×2 (04:17→09:31)
[2016-10-19] MEDS: CARDIZEM 100 MG/NS 100 MG/100 ML IVPB IV SCH (04:57)
[2016-10-19] MEDS ORDERED: MIRALAX PO SCH (09:00)
[2016-10-19] MEDS ORDERED: COLACE PO SCH (09:00)
[2016-10-19] MEDS: LOPRESSOR PO SCH (09:18)
[2016-10-19] MEDS: KLOR-CON PO SCH (09:18)
[2016-10-19] MEDS: MAG-OX PO SCH (09:18)
[2016-10-19] MEDS: CARDIZEM CD PO SCH (09:18)
[2016-10-19] MEDS: SINEMET 25/100 PO SCH (09:18)
[2016-10-19] MEDS: PROTONIX IV SCH (09:18)
[2016-10-19] MEDS: PATIENT'S OWN MED PO SCH (09:19)
[2016-10-19 11:34] VITALS: BP 120/58
[2016-10-19] MEDS ORDERED: VANCOMYCIN 1,350 MG in NS 250 ML IV SCH (21:00)
--- NOTE | 2016-11-16 15:31 | HISTORY AND PHYSICAL ---
Patient of [employer] in the office. Presented to the emergency room with a history of nausea for 4 weeks associated with vomiting. She says she just cannot keep anything down. Some of it does not seem like vomiting but more of regurgitation. These symptoms have been present for a month. She denies fever. Patient has had a bowel resection and hernia repair. The hernia repair was actually her stomach had herniated into her chest. Patient denies any abdominal pain currently on presentation. She denies passing gas. Patient says she has lost 32 pounds in the last month. She has had a history of a feeding tube in the past. Her last bowel movement was the day of presentation. She is really not having any pain per se and there is no history of any fever or chills, melena or hematochezia. She has some occasional belly pain. Not a consistent belly pain. It is primarily poor appetite, regurgitation with reflux and dysphagia. PAST MEDICAL HISTORY: She has a history of hypertension. She has a history of tremors that has been progressively worsening. 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 She has severe arthritis osteoporosis, ankylosing spondylitis of her back with severe anterior listing when walking. She has been to the tremor clinic and trying to get something done about her tremors and has been tried on different medications. Currently on some antiparkinson type drugs. She is status post appendectomy, cholecystectomy and the large hernia repair previously discussed. She lives alone. Has some friends here. The rest of her family is out of town. SOCIAL HISTORY: She lives alone. Nonsmoker and does not use any drugs per se. REVIEW OF SYSTEMS: Constitutional: She has had a 32 pounds weight loss but denies fever, chills, night sweats. Eyes: No change in vision. No redness and no erythema. Ears/Nose/Throat: No ear pain, nose pain or throat pain. Cardiovascular: She denies chest pain, heart murmur, irregular heart rate. Respiratory: Denies cough, shortness of breath or wheezing. Gastrointestinal: Denies abdominal pain. : Denies dysuria, flank pain and hematuria. Musculoskeletal: Denies back pain, joint pain and neck pain. Skin: No rashes, hives or itching. Neurological: No dizziness, vertigo, headaches, migraines, numbness, slurred speech, syncope. Psychiatric: No history of chronic depression, anxiety. Endocrine: No history of cold or heat intolerance. No polyuria, polydipsia. Hematological: No history of anemia, clots, bleeding. Allergies: No significant hayfever or asthma. At the time of admission, temperature was 97.7 degrees, pulse rate was 90, respiratory rate 16, BP was 108/63, and O2 saturation was 96. General: The patient was alert. HEENT: Head was normocephalic. She is in no apparent distress. Eyes were PERRLA. EOMs intact. Sclerae clear. Nares patent. Oropharynx negative. Neck: Supple. Bounding carotids without thyromegaly, lymphadenopathy, jugular venous distention. Chest: She has a very kyphotic chest. Breath sounds were symmetrical. No consolidative findings. Cardiovascular: Regular rhythm and rate. No murmurs, gallops. She had a tachycardia but she had no murmurs. Abdomen: Bowel sounds were present. It was soft, generally well-healed previous surgical scars. No distention, no rebound, no hernia. Lymphatic: No lymphadenopathy. Back: No CVA tenderness. Skin: No ecchymoses or erythema. No swelling. Neurological: No focal neurologic deficits. Extremities move normally. Cranial nerves are symmetrical. Psychiatric: She has been somewhat depressed and anxious about her health condition but does not carry a chronic history of the same. In the ER she had a white count of 6886, hematocrit was 43. Platelet count was 310,000. White cell differential were negative. She had a comp that was basically normal. Sodium is a little low at 132, chloride was 95. Her hematocrit was 43. Hemoglobin 14.8, platelet count was 310,000. She had a CAT scan done while she was there and abdomen CAT scan done on 10/15/2016 showed a small left pleural effusion which was slightly increased in size from previous, status post cholecystectomy, severe fatty liver infiltration. No bowel obstruction. Diverticulosis. Small uterine fibroid. She also had a chest x-ray which showed left basilar atelectasis versus tiny infiltrate with likely a tiny effusion. So she was admitted for weight loss and dyspepsia. cc: Isrrael Reyes MD
--- NOTE | 2016-12-02 11:14 | DISCHARGE SUMMARY ---
ADMISSION DATE: 10/16/2016 DISCHARGE DATE: 10/19/2016 HISTORY OF PRESENT ILLNESS: An office patient of mine who presented to the emergency room 10/15/2016. The patient has been having significant problems of late not being able to keep anything down, throwing up, nauseated. It has been going on for weeks. She was keeping some down but she has lost 32 pounds. She denies any fever associated with this loss. No history of any GI blood loss. No urinary frequency, no heat intolerance. In the past, she has had some significant weight loss and had a stomach that had herniated into her chest that was reduced by Dr. Daniel and she subsequently did fine until lately. She is not having any discomfort except for occasional distention. She has as past history hypertension, osteoporosis, ankylosing spondylitis of the back was severe listing with walking. Parkinson tremor and is being treated with Sinemet. She is status post appendectomy, cholecystectomy, and previous stomach herniation into the chest that has been reduced. In the ER, she had a relatively normal CBC. Her electrolytes were normal. A CT scan done there showed a small left pleural effusion slightly increased status post cholecystectomy, severe fatty liver infiltration, diverticulosis, small uterine fibroid and some left basilar atelectasis versus a tiny infiltrate. HOSPITAL COURSE: Shortly after being admitted, she began having a rapid tachycardia and rapid rate for which she was given adenosine. She was given Cardizem and her heart rate converted. We kept her on Cardizem and we consulted Dr. Brown. We had put her on Xarelto and Cardizem. He felt like she just had paroxysmal atrial fibrillation. She has coronary artery disease without significant stenosis, a previous pulmonary emboli in 2016 for which she is taking the Xarelto, history of a repair of a paraesophageal hernia with previous episodes of severe anasarca and edema from malnutrition, Parkinson disease and ankylosing spondylitis. So we decided from the cardiological standpoint, to continue the Cardizem IV as a low dose and recommend a GI consult. 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 During hospital stay, her vital signs remained stable after the initial bout of atrial fibrillation. DISCHARGE INSTRUCTIONS: We discharged her on Xarelto, Zofran, Valium, Ambien, Biotene, magnesium, Carafate, Lopressor 25 mg q.12 and Cardizem CD 120. FOLLOWUP INSTRUCTIONS: She will be followed up in the office to see if she tolerates her new medication. She will be seen by GI as an outpatient for a scope. cc: Isrrael Reyes MD
== END 2016-10-19 15:40 | disposition home health service (06) ==
LOC: P.ED 08:14 → P.MEDSURG 12:51 → INTOOBSV 12:51 → ICU 22:47 → P.ICU 22:50 → P.MEDSURG 10-18 17:34
PROVIDERS: ADMIT Internal Medicine; ATTEND Internal Medicine